=== PATIENT | female | born 1990 | race Caucasian/White ===

== ENCOUNTER 2020-10-09 10:06 | Emergency (ER) | payer BC ==
[~2020-10-09] VITALS: Ht 167.6 cm; Wt 63.5 kg
[2020-10-09] MEDS ORDERED: LEVSIN/SL0.125 MG SL (15:03)
[2020-10-09] MEDS ORDERED: ZOFRAN8 MG PO (15:03)
[2020-10-09] MEDS ORDERED: PEPCID AC20 MG PO (15:03)
== END 2020-10-09 15:59 | disposition home or self-care (01) ==
LOC: ER 10:06
DX: K29.70 Gastritis, unspecified, without bleeding (principal); R11.2 Nausea with vomiting, unspecified